=== PATIENT | male | born 1950 | race Caucasian/White ===

== ENCOUNTER 2018-03-30 14:32 | Emergency (ER) | payer MEDICARE, OTHER ==
[~2018-03-30] VITALS: Ht 180.3 cm; Wt 84.5 kg
[2018-03-30] MEDS ORDERED: NAPR220C2 PO (14:53)
[2018-03-30 17:22] VITALS: BP 125/79
== END 2018-03-30 17:24 | disposition home or self-care (01) ==
LOC: ED 17:00
DX: M54.16 Radiculopathy, lumbar region (principal)
CPT/HCPCS: 72148; 99284

== ENCOUNTER 2018-09-13 17:08 | Emergency (ER) | payer MEDICARE ==
[~2018-09-13] VITALS: Ht 180.3 cm; Wt 85.0 kg
[~2018-09-13 17:08] MED LIST: NAPR220C2 PO
[2018-09-13 17:24] VITALS: BP 125/85
[2018-09-13] MEDS ORDERED: ONDANSETRON 2MG/ML, 2ML IVPush ONE (17:30)
[2018-09-13] MEDS ORDERED: MAALOX/HYOSCYAMINE/LIDOCAINE 45 ML BTL PO ONE (17:30)
[2018-09-13] MEDS ORDERED: CARBAMIDE PEROXIDE EAR DROPS 6.5%, 15ML RIGHT EAR ONE (17:30)
[2018-09-13] MEDS ORDERED: SODIUM CHLORIDE FLUSH 10ML SYR IVF ONE (17:30)
[2018-09-13] MEDS ORDERED: FAMOTIDINE 20 MG/2 ML IVP ONE (17:30)
[2018-09-13] MEDS ORDERED: DOCUSATE 50 MG/5 ML, 10ML UDC ONE (18:29)
[2018-09-13] MEDS ORDERED: DOCUSATE 50 MG/5 ML ORAL SOL RIGHT EAR ONE (18:30)
== END 2018-09-13 20:31 | disposition home or self-care (01) ==
LOC: ED 20:25
DX: H61.21 Impacted cerumen, right ear (principal); G43.909 Migraine, unspecified, not intractable, without status migrainosus; I10 Essential (primary) hypertension
CPT/HCPCS: 69209; 99282